=== PATIENT | female | born 1985 | race Caucasian/White ===

== ENCOUNTER 2017-11-07 14:38 | Emergency (ER) | payer MEDICAID, OTHER ==
[2017-11-07 14:47] VITALS: BP 125/90; PULSE 90; RESP 16; TEMP 98.1; O2SAT 93
--- NOTE | 2017-11-07 15:01 | EDPHY ---
H & P HPI/ROS: CHIEF COMPLAINT: Cough fever and skin problems History by patient HISTORY OF PRESENT ILLNESS: 29-year-old woman presents complaining of 1 week of URI symptoms including runny and stuffy nose, cough occasionally productive of green sputum and subjective fevers at home. There has been no associated nausea, vomiting or diarrhea. She does think her coworkers have been sick with a similar illness. She says that the fever "broke last night and she has felt better today. She had to miss work the last 2 days. Patient also complains of several months of spots appearing under skin as if something is underneath there sometimes with black threads coming out of them that she has to pick at. Patient has a history of IV heroin use and says she has not used in over a year and says she has used meth in the past but is not a regular methamphetamine user. Patient is a regular smoker. She also uses marijuana. REVIEW OF SYSTEMS: As in HPI, and all other systems reviewed and are negative Smoking Status: Current every day smoker Physical Exam: General Appearance: Alert, slightly agitated and twitchy but nontoxic- appearing. Head: normocephalic, atraumatic Eyes: Pupils equal and round, reactive to light, no pallor or injection. Mouth: Mucous membranes moist. Respiratory: Normal, effort, lungs diffuse intermittent scattered expiratory wheezes Cardiovascular: Regular rate and rhythm. S1, S2, no murmurs, gallops or rubs appreciated Gastrointestinal: Abdomen is soft and nontender, no masses, bowel sounds normal. Back: No CVA tenderness, no bony tenderness Neurological: Awake, alert and oriented x 3, no pronator drift, normal gait, no pronator drift Skin: Warm and dry, multiple scars and scabs no interdigital lesions. Musculoskeletal: No deformities or tenderness. Extremities: full range of motion, no edema, DP2+ bilat Psychiatric: Patient has normal affect, there is no agitation. Constitutional: Initial Vital Signs Temperature (C) 36.7 C 11/07/17 14:44 Heart Rate 90 11/07/17 14:44 Respiratory Rate 16 11/07/17 14:44 Blood Pressure 125/90 H 11/07/17 14:44 O2 Sat (%) 93 11/07/17 14:44 O2 Delivery Mode Room Air Allergies/Adverse Reactions: albuterol Allergy (Verified 11/07/17 14:44) amoxicillin [Amoxicillin] Allergy (Verified 11/07/17 14:44) Home Medications: Medication Instructions Recorded Albuterol [Proventil Inhaler HFA 1 - 2 puffs IH Q4H #1 mdi 11/07/17 (*)] MDM/Departure - [facility] ED Course/Re-evaluation: 29-year-old woman smoker presents with URI symptoms and subjective fever but is nontoxic and non hypoxic. She does have some slight wheezes. She says albuterol makes her jittery and anxious. However but has been wheezing I am recommending albuterol. Patient is also concerned about multiple skin picking lesions. This in conjunction with her clinical picture of slightly agitated and twitchy patient makes me suspect methamphetamine related skin picking and/ or delusions of parasitosis. I discussed this with the patient. She does admit to using methamphetamines in the past. There is no evidence of acute systemic toxicity or hemodynamic instability. Patient be discharged home in stable condition. - Depart Disposition: Home, Routine, Self-Care Clinical Impression: Skin-picking disorder Upper respiratory infection Qualifiers: URI type: unspecified URI Qualified Code(s): J06.9 - Acute upper respiratory infection, unspecified Condition: Good Instructions: Upper Respiratory Infection (DC) Additional Instructions: You were seen by Dr. Linda Ferguson today. Use albuterol inhaler for coughing and wheezing. Take ibuprofen and Tylenol as needed for pain and fever. I find no evidence of infection in your skin today. The sensations may be related to methamphetamine use. Return for any worsening or new concerns. Prescriptions: Albuterol [Proventil Inhaler HFA (*)] 1 - 2 puffs IH Q4H #1 mdi Referrals: NONE *PRIMARY CARE P,. [Primary Care Provider] - As per Instructions
== END 2017-11-07 15:09 | disposition home or self-care (01) ==
LOC: CED 14:38
DX: J06.9 Acute upper respiratory infection, unspecified (principal); F42.4 Excoriation (skin-picking) disorder; F17.200 Nicotine dependence, unspecified, uncomplicated